=== PATIENT | male | born 1955 | race Two or more races ===

== ENCOUNTER 2023-03-18 17:04 | Emergency (ER) | payer OTHER ==
[~2023-03-18] VITALS: Ht 167.6 cm; Wt 77.1 kg
[2023-03-18] MEDS ORDERED: LIPITOR20 MG PO (17:42)
[2023-03-18 19:09] LABS: PH,URINE 6.5 (5.0-8.0); URINE APPEARANCE Turbid; URINE BILIRRUBIN Negative (NEGATIVE); URINE BLOOD Large; URINE COLOR Yellow; URINE GLUCOSE Negative (NEGATIVE); URINE LEUKOCYTE Large; URINE NITRATE Negative; URINE UROBILINOGEN 0.2 E.U./dl
[2023-03-18 19:12] LABS: URINE BACTERIA 510.2 uL (0.0-1933)
[2023-03-18 19:14] LABS: URINE EPITHELIAL CELLS 0.7 uL (0.0-38.8); URINE PROTEIN 100 (NEGATIVE); URINE WBC > 5548.3 uL (0.0-23.2)
[2023-03-18 19:17] LABS: HEMATOCRIT 39.4 % (39.0-48.0); HEMOGLOBIN 13.2 g/dL (13-16.00); MEAN CELL VOLUME 91.9 fL (80.0-100.00); MEAN CORPUSCULAR HEMOGLOBIN 30.7 pg (27.00-32.0); MEAN CORPUSCULAR HGB CONC 33.4 g/dl (32.0-36.0); PLATELET COUNT 269 K/uL (150-450); RED BLOOD COUNT 4.29 M/uL (4.00-6.00); RED CELL DISTRIBUTION WIDTH 13.4 % (11.5-14.5)
[2023-03-18 19:31] LABS: CALCIUM 9.3 mg/dL (8.5-10.1); CREATININE SERUM 1.03 mg/dL (0.70-1.30); GFR 72.03; POTASSIUM 3.95 mEq/L (3.5-5.1)
== END 2023-03-18 21:10 | disposition home or self-care (01) ==
LOC: ER 17:04
PROVIDERS: General Practice
DX: N39.0 Urinary tract infection, site not specified (principal); R30.0 Dysuria; Z88.0 Allergy status to penicillin
CPT/HCPCS: 36415; 96365; 99284; J1956